=== PATIENT | female | born 1995 ===

== ENCOUNTER 2020-07-05 10:24 | Outpatient (CLI) | payer OTHER ==
[2020-07-06 02:13] LABS: SARS-CoV-2 PCR by NAA Not Detected (NotDetected)
== END 2020-07-05 10:25 | disposition home or self-care (01) ==
LOC: CSHLAB 10:24
PROVIDERS: ATTEND Obstetrics & Gynecology
DX: Z01.812 Encounter for preprocedural laboratory examination (principal); Z20.822 Contact with and (suspected) exposure to COVID-19
CPT/HCPCS: 87635; U0003; U0005

== ENCOUNTER 2020-07-08 05:23 | Inpatient (IN) | payer OTHER ==
[2020-07-08] MEDS ORDERED: Methylergonovine 0.2 MG/ML VIAL IM PRN (06:12)
[2020-07-08] MEDS ORDERED: Diphenoxylate HCl/Atropine Tablet PO PRN ×2 (06:12)
[2020-07-08] MEDS ORDERED: Ondansetron PF 4 MG/2 ML Vial IVP PRN (06:12)
[2020-07-08] MEDS ORDERED: Promethazine HCl 25 MG/ML VIAL IM PRN (06:12)
[2020-07-08] MEDS ORDERED: Ibuprofen 800 MG TAB PO PRN (06:12)
[2020-07-08] MEDS ORDERED: Acetaminophen 500 MG TAB PO PRN (06:12)
[2020-07-08] MEDS ORDERED: NS / Oxytocin 40 units/1000ml 1,000 ML IV PRN (06:12)
[2020-07-08] MEDS ORDERED: Butorphanol Tartrate 1 MG/ML VIAL SLOW IVP PRN (06:12)
[2020-07-08] MEDS ORDERED: hydrALAZINE 20 MG/ML VIAL SLOW IVP PRN (06:12)
[2020-07-08] MEDS ORDERED: Carboprost 250 MCG/ML AMP IM PRN (06:12)
[2020-07-08] MEDS ORDERED: Lidocaine 1% (PF) 30 ML VIAL SC PRN (06:12)
[2020-07-08] MEDS ORDERED: HYDROcodone/Acetaminophen 5/325 mg Tablet PO PRN (06:12)
[2020-07-08] MEDS ORDERED: Misoprostol 200 MCG TAB PR PRN (06:12)
[2020-07-08] MEDS: Lactated Ringer's 1,000 ML IV SCH ×3 (06:15→23:02)
[2020-07-08] MEDS ORDERED: Misoprostol 100 MCG TAB ONE (06:34)
[2020-07-08 06:35] LABS: Hemoglobin 9.7 g/dL (12.0-15.5); Mean Corpuscular HGB CONC 32.8 g/dL (32.0-36.0); Mean Corpuscular Hemoglobin 29.3 pg (27.0-33.0); Mean Corpuscular Volume 89.4 fl (81.6-98.3); Mean Platelet Volume 8.8 fl (7.4-10.4); Platelet Count 245 10x3/uL (150-450); RBC Distribution Width 17.1 % (11.5-14.5); Red Blood Cell (RBC) Count 3.31 10x6/uL (3.90-5.03); White Blood Cell (WBC) Count 9.6 10x3/uL (3.5-10.5)
[2020-07-08] MEDS: Misoprostol 100 MCG TAB VAG SCH ×2 (06:35→10:15)
[2020-07-08 07:21] VITALS: BMI 31.2
[2020-07-08 07:22] LABS: Hep B Surf Ag Non-Reactive S/CO (NonReactive)
[2020-07-08 07:23] LABS: Syphilis Antibody Nonreactive (Nonreactive); Syphilis Antibody Index 0.01 S/CO (<1.00 Non-Reactive)
[2020-07-08 07:30] LABS: HBSAg Index 0.19 S/CO (0-0.99)
[2020-07-08] MEDS ORDERED: NS w/ Oxytocin 30 units 500 ML ONE (14:36)
[2020-07-08] MEDS ORDERED: Fentanyl 4 mcg/Bup 0.1% Cadd 100 ML ONE (17:58)
[2020-07-09] MEDS ORDERED: diphenhydrAMINE 50 MG/ML VIAL IVP PRN (00:51)
[2020-07-09] MEDS ORDERED: Lactated Ringer's 500 ML IV PRN (00:51)
[2020-07-09] MEDS ORDERED: Hydrocerin (Eucerin) Cream 120 gm Jar TOP PRN (00:51)
[2020-07-09] MEDS ORDERED: Acetaminophen 325 MG TAB PO PRN (00:51)
[2020-07-09] MEDS ORDERED: Naloxone HCl 0.4 mg/ml Vial IVP PRN ×2 (00:51)
[2020-07-09] MEDS ORDERED: Promethazine HCl 25 MG/ML VIAL IM PRN ×2 (00:51→09:13)
[2020-07-09] MEDS ORDERED: Ondansetron PF 4 MG/2 ML Vial IVP PRN ×2 (00:51→09:13)
[2020-07-09] MEDS ORDERED: ePHEDrine 50 MG/ML VIAL SLOW IVP PRN (00:51)
[2020-07-09] MEDS ORDERED: Fentanyl 4 mcg/Bupivacaine 0.1% Cassette 100 ML EPIDURAL SCH (01:00)
[2020-07-09] MEDS ORDERED: Communication Order-Pharmacy FS SCH (01:00)
[2020-07-09] MEDS ORDERED: CEFAZOLIN 2 GM in Premix Bag 1 BAG IVPB SCH (04:00)
[2020-07-09] MEDS: Lactated Ringer's 1,000 ML IV SCH (05:04)
[2020-07-09] MEDS ORDERED: NS w/ Oxytocin 30 units 500 ML ONE (07:01)
[2020-07-09] MEDS ORDERED: Milk Of Magnesia 30 ML UDCUP PO PRN (09:00)
[2020-07-09] MEDS ORDERED: Methylergonovine 0.2 MG/ML VIAL IM PRN (09:13)
[2020-07-09] MEDS ORDERED: hydrALAZINE 20 MG/ML VIAL SLOW IVP PRN (09:13)
[2020-07-09] MEDS ORDERED: Varicella virus, LIVE 0.5 ML VIAL SC ONE (09:13)
[2020-07-09] MEDS ORDERED: Lanolin Ointment 7 GM TUBE TOP PRN (09:13)
[2020-07-09] MEDS ORDERED: Adacel (T-DAP) 0.5 ML SYRINGE IM ONE (09:13)
[2020-07-09] MEDS ORDERED: Bisacodyl 10 MG SUPP PR PRN (09:13)
[2020-07-09] MEDS ORDERED: diphenhydrAMINE 25 MG CAP PO PRN (09:13)
[2020-07-09] MEDS ORDERED: Preparation H Ointment 28 GM TUBE PR PRN (09:13)
[2020-07-09] MEDS ORDERED: Measles/Mumps/Rubella 10 MCG/0.5 ML VIAL SC ONE (09:13)
[2020-07-09] MEDS ORDERED: Misoprostol 200 MCG TAB VAG PRN (09:13)
[2020-07-09] MEDS ORDERED: NS w/ Oxytocin 30 units 500 ML IVPB SCH (10:00)
[2020-07-09] MEDS: HYDROcodone/Acetaminophen 5/325 mg Tablet PO PRN (10:07)
[2020-07-09] MEDS: Misoprostol 100 MCG TAB VAG SCH ×2 (12:37→12:38)
[2020-07-09] MEDS: Ibuprofen 800 MG TAB PO SCH ×2 (14:38→21:54)
[2020-07-09] MEDS: CEFAZOLIN 2 GM in Premix Bag 1 BAG IVPB SCH (16:53)
[2020-07-09] MEDS: Ferrous Sulfate 325 MG TAB PO SCH (17:43)
[2020-07-09] MEDS ORDERED: Zolpidem Tartrate 5 MG TAB PO PRN (21:00)
[2020-07-09] MEDS: Docusate Calcium (SURFAK) 240 MG CAP PO SCH (21:45)
[2020-07-10] MEDS: CEFAZOLIN 2 GM in Premix Bag 1 BAG IVPB SCH ×3 (01:26→17:18)
[2020-07-10 05:42] LABS: Hemoglobin 9.3 g/dL (12.0-15.5); Mean Corpuscular HGB CONC 32.4 g/dL (32.0-36.0); Mean Corpuscular Hemoglobin 29.2 pg (27.0-33.0); Mean Corpuscular Volume 90.3 fl (81.6-98.3); Mean Platelet Volume 8.7 fl (7.4-10.4); Platelet Count 265 10x3/uL (150-450); RBC Distribution Width 16.8 % (11.5-14.5); Red Blood Cell (RBC) Count 3.18 10x6/uL (3.90-5.03); White Blood Cell (WBC) Count 13.4 10x3/uL (3.5-10.5)
[2020-07-10] MEDS: Ibuprofen 800 MG TAB PO SCH ×2 (06:09→15:20)
[2020-07-10 08:24] VITALS: BP 96/57; TEMP 97.8
[2020-07-10] MEDS ORDERED: Prenatal Vitamin 1 TAB PO SCH (09:00)
[2020-07-10] MEDS: Ferrous Sulfate 325 MG TAB PO SCH ×2 (09:23→17:17)
[2020-07-10] MEDS: Docusate Calcium (SURFAK) 240 MG CAP PO SCH (09:23)
[2020-07-10] MEDS: HYDROcodone/Acetaminophen 5/325 mg Tablet PO PRN (09:23)
== END 2020-07-10 17:58 | disposition home or self-care (01) | DRG 807 ==
LOC: CSHLD 05:23 → CSHPP 07-09 09:59
PROVIDERS: ADMIT Obstetrics & Gynecology; ATTEND Obstetrics & Gynecology
PROC: 10E0XZZ Delivery of Products of Conception, External Approach (ICD-10-PCS; principal; 2020-07-09)
PROC: 3E033VJ Introduction of Other Hormone into Peripheral Vein, Percutaneous Approach (ICD-10-PCS; 2020-07-09)
PROC: 0HQ9XZZ Repair Perineum Skin, External Approach (ICD-10-PCS; 2020-07-09)
DX: O70.0 First degree perineal laceration during delivery (principal); Z37.0 Single live birth; Z3A.39 39 weeks gestation of pregnancy; Z20.822 Contact with and (suspected) exposure to COVID-19
CPT/HCPCS: 36415; 51702; 85027; 86780; 86850; 86900; 86901; 87340; 87635; J0690; J2590; U0003; U0005